=== PATIENT | male | born 1945 | race Caucasian/White ===

== ENCOUNTER 2016-08-06 06:51 | Emergency (ER) | payer MEDICARE, OTHER ==
[~2016-08-06] VITALS: Ht 172.7 cm; Wt 81.6 kg
[2016-08-06] MEDS ORDERED: predniSONE 20 MG TABLET ONE (07:15)
--- NOTE | 2016-08-06 07:21 | NUR ---
Karen simeon in [facility] - 08/06/16 at 0722 by ZULEYKA MILLY RT FOR BREATHING TX
--- NOTE | 2016-08-06 07:23 | NUR ---
PAGED GINA RT FOR BREATHING TX
[2016-08-06] MEDS ORDERED: ALBUTEROL FS 2.5 MG/3 ML VIAL.NEB ONE ×2 (07:27→08:13)
[2016-08-06] MEDS ORDERED: IPRATROPIUM NEB FS 0.5 MG/2.5 ML AMPUL.NEB ONE ×2 (07:27→08:13)
[2016-08-06] MEDS ORDERED: ALBUTEROL FS 2.5 MG/3 ML VIAL.NEB NEB ONE ×2 (07:30→08:30)
[2016-08-06] MEDS ORDERED: predniSONE 20 MG TABLET PO ONE (07:30)
[2016-08-06] MEDS ORDERED: IV NS 0.9% 1,000 ML BAG IV ONE (07:30)
[2016-08-06] MEDS ORDERED: IPRATROPIUM NEB FS 0.5 MG/2.5 ML AMPUL.NEB NEB ONE ×2 (07:30→08:30)
[2016-08-06 07:38] LABS: BASOPHILS % (AUTO) 0.3 % (0.0-2.0); EOSINOPHILS % (AUTO) 0.2 % (0.0-6.0); HEMATOCRIT 38 % (39-51); HEMOGLOBIN 13.1 g/dL (13.5-17.5); LYMPHOCYTES # (AUTO) 0.5 /CMM (0.8-4.8); LYMPHOCYTES % (AUTO) 8.3 % (20.0-44.0); MEAN CORPUSCULAR HEMOGLOBIN 31 PG (26.0-33.0); MEAN CORPUSCULAR HGB CONC 35 g/dl (31.0-36.0); MEAN CORPUSCULAR VOLUME 89 fL (80-96); MONOCYTES # (AUTO) 0.6 /CMM (0.1-1.30); MONOCYTES % (AUTO) 10.7 % (2.0-12.0); NEUTROPHILS # (AUTO) 4.7 /CMM (1.8-8.9); NEUTROPHILS % (AUTO) 80.5 % (43.0-81.0); PLATELET COUNT (AUTO) 196 /CMM (150-450); RDW COEFFICIENT OF VARIATION 13.6 (11.5-15.0); RED BLOOD CELL COUNT(AUTO) 4.24 MIL/uL (4.5-6.0); WHITE BLOOD COUNT (AUTO) 5.9 K/uL (4.3-11.0)
[2016-08-06 07:44] LABS: CALCIUM, SERUM 8.7 mg/dL (8.5-10.1); CREATININE 1.3 mg/dL (0.6-1.3); POTASSIUM 3.8 mmol/L (3.5-5.1)
[2016-08-06] MEDS ORDERED: IV NS 0.9% 1,000 ML ONE (07:50)
[2016-08-06] MEDS ORDERED: IV SET PRIMARY 1 EA INFUS.SET MC ONE (07:50)
--- NOTE | 2016-08-06 07:50 | NUR ---
XRAY IN PROGRESS AT BS
[2016-08-06 07:56] LABS: ALBUMIN 3.2 g/dL (3.4-5.0); BILIRUBIN,DIRECT 0.1 mg/dL (0.0-0.2); BILIRUBIN,TOTAL 0.6 mg/dL (0.2-1.0); TOTAL PROTEIN, SERUM 6.9 g/dL (6.4-8.2)
--- NOTE | 2016-08-06 08:19 | NUR ---
BREATHING TREATMENT #2 AT BS
[2016-08-06 09:15] VITALS: BP 125/71
--- NOTE | 2016-08-06 09:15 | NUR ---
IV removed. Catheter intact and site benign. Pressure and 4x4 applied to site. No bleeding noted.Patient discharged to home in stable condition. Written and verbal after care instructions given. Patient verbalizes understanding of instruction.
== END 2016-08-06 09:15 | disposition home or self-care (01) ==
LOC: ER 06:51
DX: J40 Bronchitis, not specified as acute or chronic (principal); J98.9 Respiratory disorder, unspecified; N40.0 Benign prostatic hyperplasia without lower urinary tract symptoms; F20.2 Catatonic schizophrenia; Z98.890 Other specified postprocedural states
CPT/HCPCS: 36415; 71010; 80048; 80076; 83880; 85025; 94640 ×2; 96360; 99285; A4606; J7030; J7512; Z7610

== ENCOUNTER 2019-05-31 01:27 | Inpatient (IN) | payer MEDICARE, OTHER ==
[~2019-05-31] VITALS: Ht 172.7 cm; Wt 96.2 kg
[2019-05-31] MEDS ORDERED: IV NS 0.9% 1,000 ML BAG IV ONE (02:00)
--- NOTE | 2019-05-31 02:15 | NUR ---
BIBSISTER FROM HOME TO ER BED 4. AAOX4. NO RESP DISTRESS NOTED. AMBULATORY. C/O RLQ ABDOMINAL PAIN STARTED AROUND 1700. PT RATES PAIN 8/10 SHARP AND ACHING. PT REPORTS +N/V, -D. PT'S SISTER ALSO REPORTS THAT HE HAD A FALL 1 WEEK AGO HIT HIS HEAD AND COT A CUT, NOTED A 4CM LONG STRIGHT DRY SCAB ON TOP OF THE HEAD. MD WAS AT BEDSIDE FOR EVAL . ORDERS RECEIVED NOTED AND MARINA OUT
[2019-05-31 02:19] LABS: BASOPHILS % (AUTO) 0.1 % (0.0-2.0); CALCIUM, SERUM 9.5 mg/dL (8.5-10.1); CREATININE 1.3 mg/dL (0.6-1.3); HEMATOCRIT 39 % (39-51); HEMOGLOBIN 13.4 g/dL (13.5-17.5); LYMPHOCYTES # (AUTO) 0.4 /CMM (0.8-4.8); LYMPHOCYTES % (AUTO) 1.8 % (20.0-44.0); MEAN CORPUSCULAR HGB CONC 34 g/dl (31.0-36.0); MEAN CORPUSCULAR VOLUME 90 fL (80-96); MONOCYTES # (AUTO) 1.3 /CMM (0.1-1.30); NEUTROPHILS # (AUTO) 19.5 /CMM (1.8-8.9); NEUTROPHILS % (AUTO) 92.1 % (43.0-81.0); PLATELET COUNT (AUTO) 240 /CMM (150-450); POTASSIUM 3.6 mmol/L (3.5-5.1); RED BLOOD CELL COUNT(AUTO) 4.39 MIL/uL (4.5-6.0); WHITE BLOOD COUNT (AUTO) 21.2 K/uL (4.3-11.0)
[2019-05-31 02:26] LABS: ALBUMIN 3.4 g/dL (3.4-5.0); BILIRUBIN,DIRECT 0.2 mg/dL (0.0-0.2); BILIRUBIN,TOTAL 1.4 mg/dL (0.2-1.0)
[2019-05-31] MEDS ORDERED: ONDANSETRON HCL/PF 4 MG/2 ML VIAL IVP ONE (02:30)
[2019-05-31] MEDS ORDERED: KETOROLAC TROMETHAMINE INJ 30 MG/ML VIAL IV ONE (02:30)
[2019-05-31] MEDS ORDERED: KETOROLAC TROMETHAMINE 15 MG/ML VIAL ONE (02:37)
[2019-05-31] MEDS ORDERED: ONDANSETRON HCL/PF 4 MG/2 ML VIAL ONE (02:38)
[2019-05-31] MEDS ORDERED: IOHEXOL-300 100 ML VIAL IV ONE (02:45)
--- NOTE | 2019-05-31 02:52 | NUR ---
TO CT ON [facility]
[2019-05-31] MEDS ORDERED: PIPERACILLIN /TAZOBACTAM 3.375 G in IV D5W 50 ML IV ONE (03:30)
[2019-05-31] MEDS ORDERED: PIPERACILLIN /TAZOBACTAM 3.375 G VIAL IV ONE (03:38)
--- NOTE | 2019-05-31 03:42 | NUR ---
DR. HEARD ON THE PHONE WITH DR. RABAGO (CLINICAL DATA ASSOCIATE SURGERY)
--- NOTE | 2019-05-31 03:42 | NUR ---
DR. HEARD ON THE PHONE WITH DR. CRUZ
--- NOTE | 2019-05-31 03:53 | NUR ---
ROOM ASSIGNMENT [id number]
--- NOTE | 2019-05-31 04:19 | NUR ---
REPORT GIVEN TO ESTIVEN GRANT FOR KATELYNN
[2019-05-31] MEDS ORDERED: ONDANSETRON HCL/PF 4 MG/2 ML VIAL IVP PRN (04:30)
[2019-05-31] MEDS ORDERED: MORPHINE SULFATE INJ 2 MG/ML DISP.SYRIN IV PRN (04:30)
[2019-05-31] MEDS ORDERED: ACETAMINOPHEN 650 MG/SUPP.RECT RC PRN (04:30)
[2019-05-31] MEDS ORDERED: IV D5/ 0.9% NACL 1,000 ML IV PRN (04:30)
[2019-05-31 04:55] VITALS: BP 119/87
--- NOTE | 2019-05-31 04:55 | NUR ---
PT TRANSPORTED TO UNIT ON [address] W/ EMT AND RN AT BEDSIDE. PT IS STABLE FOR TRANSPORT. NAD NOTED DURING TRANSPORT. PT AMBULATED FROM RNE TO BED W/ MIN ASSIST
[2019-05-31] MEDS ORDERED: PIPERACILLIN /TAZOBACTAM 3.375 G in IV D5W 50 ML IV SCH (05:00)
[2019-05-31] MEDS ORDERED: ANESTHESIA TRAY IN PYXIS 1 EA TRAY MC ONE (05:50)
[2019-05-31] MEDS ORDERED: BUPIVACAINE 0.25% 75 MG/30 ML VIAL ONE (05:50)
--- NOTE | 2019-05-31 05:50 | NUR ---
MS RN NOTES PATIENT PICKED UP BY OR STAFF VIA BED, ACCOMPANIED BY SISTER. PATIENT MEDICAL RECORDS BROUGHT WELL. PATIENT MEDICALLY STABLE.
--- NOTE | 2019-05-31 05:53 | NUR ---
MS PULVERIZER MILL OPERATOR NOTES PATIENT RECEIVED VIA GURNEY ACCOMPANIED BY ER STAFF AND SISTER. PATIENT A/O X 2-3, ABLE TO MAKE NEEDS KNOWN. RECEIVED MEDICAL HISTORY FROM SISTER. STABLE ON RA WITH BREATHING EVEN AND UNLABORED, NO SOB NOTED. IV LOCATED ON L AC #18 AND R AC #18 PATENT AND INTACT. ALL BELONGINGS ACCOUNTED FOR. VITALS TAKEN. ORIENTED TO ROOM AND STAFF. CONSENT WAS SIGNED BY SISTER- AWAITING SURGERY FOR APPENDECTOMY. WILL CONTINUE TO MONITOR.
[2019-05-31] MEDS ORDERED: PIPERACILLIN /TAZOBACTAM 3.375 G in IV D5W 100 ML IV SCH (06:00)
[2019-05-31] MEDS ORDERED: MIDAZOLAM HCL 2 MG/2ML VIAL ONE (06:00)
[2019-05-31] MEDS ORDERED: FENTANYL PF 250MCG/5ML AMPUL ONE (06:01)
[2019-05-31] MEDS ORDERED: ROCURONIUM BROMIDE 50 MG/5 ML ONE (06:01)
[2019-05-31] MEDS ORDERED: FAMOTIDINE/PF INJ 20 MG/2 ML VIAL IV ONE (06:01)
[2019-05-31] MEDS ORDERED: ATOR10TA PO (06:06)
[2019-05-31] MEDS ORDERED: OLAN20TA3 PO (06:09)
[2019-05-31] MEDS ORDERED: CLON2TAB11 PO (06:09)
[2019-05-31] MEDS ORDERED: MELO-107 PO (06:09)
--- NOTE | 2019-05-31 06:09 | NUR ---
MS RN NOTES MED RECON DONE, SISTER BROUGHT PATIENT MEDICATION- WROTE MEDICATIONS DOWN.
[2019-05-31] MEDS: PANTOPRAZOLE 40 MG VIAL IV SCH (09:13)
[2019-05-31] MEDS: PIPERACILLIN /TAZOBACTAM 3.375 G in IV D5W 100 ML IV SCH ×3 (09:13→23:01)
[2019-05-31 09:17] VITALS: BP 104/60
--- NOTE | 2019-05-31 09:50 | NUR ---
MS RN NOTES RECEIVED PATIENT FROM OR IN MEDICALLY STABLE CONDITION. PATIENT ON O2 THERAPY SATURATING WELL AT 100 PERCENT. BREATHING IN EVEN AND UNLABORED. NO SIGNS OF SOB AT THIS TIME. VITAL SIGNS WNL. DELFINO DRAIN PRESENT WITH 1ST EMPTYING OF 60 CC. DRESSING CLEAN AND INTACT. IV LINE PRESENT ON R HAND GAUGE # 20. INTACT AND INFUSING WELL. SAFETY PRECAUTIONS IN PLACE; BED IN LOW POSITION AND LOCKED, RAILS UP X 2, CALL LIGHT WITHIN REACH. WILL CONTINUE TO MONITOR PATIENT.
[2019-05-31] MEDS: clonazePAM 1 MG TABLET PO SCH ×2 (12:51→17:07)
[2019-05-31] MEDS: IV D5/0.45 NACL W/20 MEQ KCL 1L IV PRN ×2 (12:54)
[2019-05-31 16:03] VITALS: BP 112/64
[2019-05-31] MEDS: OLANZAPINE 10 MG TABLET PO SCH (17:38)
--- NOTE | 2019-05-31 18:57 | NUR ---
MS RN CLOSING NOTES PATIENT IN BED, WATCHING TV, A/O X2. PATIENT ON ROOM AIR BREATHING EVENLY WITH NO SIGNS OF DISTRESS AT THIS TIME. BREATHING IN EVEN AND UNLABORED. VITAL SIGNS WNL. DELFINO DRAIN PRESENT AND DRAINING WELL. DRESSING CLEAN AND INTACT. IV LINE PRESENT ON LAC GAUGE # 18. INTACT AND INFUSING WELL. ALL NEEDS ATTENDED TOO. SAFETY PRECAUTIONS IN PLACE; BED IN LOW POSITION AND LOCKED, RAILS UP X 2, CALL LIGHT WITHIN REACH. WILL ENDORSE TO TRUCK ASSEMBLER NURSE.
--- NOTE | 2019-05-31 19:49 | NUR ---
MS RN NOTES RECEIVED PATIENT RESTING IN BED, A/O X 2. PATIENT ON RA, STABLE. BREATHING EVEN AND UNLABORED. NO SIGNS OF SOB AT THIS TIME. DELFINO DRAIN PRESENT AND INTACT, DRAINING. DRESSING CLEAN AND INTACT. IV LINE L AC#18 INTACT AND INFUSING WELL. SAFETY PRECAUTIONS IN PLACE; BED IN LOW POSITION AND LOCKED, RAILS UP X 2, CALL LIGHT WITHIN REACH. WILL CONTINUE TO MONITOR PATIENT.
[2019-05-31 20:00] VITALS: BP_SYST 108; BP_SYST 127; BP_DIAS 59; BP_DIAS 64
[2019-06-01] MEDS: IV D5/0.45 NACL W/20 MEQ KCL 1L IV PRN ×4 (06:06→21:07)
--- NOTE | 2019-06-01 06:30 | NUR ---
MS RN NOTES DELFINO DRAIN DRAINED WITH 30 CC OF SERANGEOUS FLUIDS RED- NO BLOOD CLOTS NOTED.
--- NOTE | 2019-06-01 06:50 | NUR ---
MS RN CLOSING NOTES PATIENT IN BED, A/O X2-3. PATIENT ON ROOM AIR BREATHING EVENLY WITH NO SIGNS OF DISTRESS AT THIS TIME. BREATHING IN EVEN AND UNLABORED. NO COMPLAINTS OF PAIN OR DISCOMFORT. NO ACUTE DISTRESS NOTED. DELFINO DRAIN PRESENT AND DRAINING WELL. DRESSING CLEAN AND INTACT. IV LINE PRESENT ON LAC GAUGE # 18. INTACT AND INFUSING WELL. ALL NEEDS ATTENDED TOO. PATIENT WAS KEPT CLEAN AND DRY SAFETY PRECAUTIONS IN PLACE; BED IN LOW POSITION AND LOCKED, RAILS UP X 2, CALL LIGHT WITHIN REACH. WILL ENDORSE TO ONCOMING SHIFT NURSE ABOUT KATELYNN.
[2019-06-01 07:08] LABS: BASOPHILS % (AUTO) 0.4 % (0.0-2.0); EOSINOPHILS % (AUTO) 0.5 % (0.0-6.0); HEMATOCRIT 37 % (39-51); HEMOGLOBIN 12.7 g/dL (13.5-17.5); LYMPHOCYTES # (AUTO) 1.3 /CMM (0.8-4.8); LYMPHOCYTES % (AUTO) 11.3 % (20.0-44.0); MEAN CORPUSCULAR HGB CONC 34 g/dl (31.0-36.0); MEAN CORPUSCULAR VOLUME 92 fL (80-96); MONOCYTES % (AUTO) 8.1 % (2.0-12.0); NEUTROPHILS # (AUTO) 9.3 /CMM (1.8-8.9); NEUTROPHILS % (AUTO) 79.7 % (43.0-81.0); PLATELET COUNT (AUTO) 197 /CMM (150-450); RED BLOOD CELL COUNT(AUTO) 4.06 MIL/uL (4.5-6.0); WHITE BLOOD COUNT (AUTO) 11.7 K/uL (4.3-11.0)
[2019-06-01 07:18] LABS: CALCIUM, SERUM 8.8 mg/dL (8.5-10.1); CREATININE 1.1 mg/dL (0.6-1.3)
[2019-06-01 08:00] VITALS: BP 119/50
--- NOTE | 2019-06-01 08:00 | NUR ---
m/s stencil cutter: initial assessment received pt in bed awake, a/ox2-3 with disorientation to situation. pt has hx: dementia. dx: s/p lap appendectomy with placement of drain. no c/o pain or any discomfort. pt tolerating his diet. denies n/v. instructed to call for assistance. will continue to monitor.
[2019-06-01] MEDS: PIPERACILLIN /TAZOBACTAM 3.375 G in IV D5W 100 ML IV SCH ×2 (08:12→15:33)
[2019-06-01] MEDS: PANTOPRAZOLE 40 MG VIAL IV SCH (08:13)
[2019-06-01] MEDS: clonazePAM 1 MG TABLET PO SCH ×3 (08:24→17:01)
--- NOTE | 2019-06-01 09:45 | NUR ---
m/s coal unloader: notes cousin here visiting at this time.
--- NOTE | 2019-06-01 09:54 | NUR ---
m/s machine stemmer: surgeon f/u seen and examined by dr. campos at this time, likely for discharge tomorrow as stated. pt aware. also received verbal order for norco 5/325mg 1 tab po q 4 hours prn. order read back and carried out.
[2019-06-01] MEDS ORDERED: HYDROCODONE/APAP 5/325MG 1 EACH TABLET PO PRN (10:00)
--- NOTE | 2019-06-01 12:00 | NUR ---
m/s loan servicing specialist: notes lunch served. hob elevated. instructed to call for assistance. will continue to monitor.
--- NOTE | 2019-06-01 14:00 | NUR ---
m/s psychology department chair: notes resting comfortable in bed. no c/o pain. encourage to use incentive spirometry every hour x 10 while aware. instructed to call for assistance.
[2019-06-01 16:00] VITALS: BP 140/83
--- NOTE | 2019-06-01 17:10 | NUR ---
m/s canceling and cutting control clerk: notes sister came back for a visit and while i was giving his evening med, sister informed me that pt is getting seroquel 100mg po every night. i inform her that i will place a call to dr. manzanares to let him know. dr. manzanares notified and made aware with order to continue seroquel 100mg po every hs. order read back and carried out. pt and sister made aware.
[2019-06-01] MEDS ORDERED: QUET100T PO (17:13)
[2019-06-01] MEDS: OLANZAPINE 10 MG TABLET PO SCH (18:02)
--- NOTE | 2019-06-01 18:30 | NUR ---
m/s oil well engineer: notes sister left at this time. pt resting comfortable. no distress noted. needs attended. instructed to call for assistance. will continue to monitor.
--- NOTE | 2019-06-01 19:15 | NUR ---
m/s manager global communications: notes bedside report given to jean (kenzie) for continuity of care.
[2019-06-01 19:30] VITALS: BP 145/87
--- NOTE | 2019-06-01 19:30 | NUR ---
MS RN NOTES PATIENT IN BED, AWAKE, ALERT AND ORIENTED X 2-3. REMINDED PATIENT TO NOT GET OUT OF BED AND TO CALL FOR ASSISTANCE. BREATHING EVEN AND UNLABORED ON ROOM AIR. SHOWS NO SIGNS OF ACUTE RESPIRATORY DISTRESS, NO ACUTE PAIN. IV ON L WRIST 22G RUNNING D5 1/2 WITH 20MEQ KCL. CLEAN DRY AND INTACT. SHOWS NO SIGNS OF INFILTRATION, NO REDNESS. DELFINO INTACT AND DRAINING. SAFETY PRECAUTION IN PLACE. BED IN LOWEST POSITION, LOCKED, AND CALL LIGHT KEPT WITHIN REACH. WILL CONTINUE TO MONITOR.
[2019-06-01 20:40] VITALS: BP 145/87
[2019-06-01] MEDS: QUETIAPINE FUMARATE 100 MG TABLET PO SCH ×3 (21:05→21:48)
--- NOTE | 2019-06-01 22:00 | NUR ---
MS RN NOTES PATIENT REFUSED 2200 SEROQUEL AFTER OPENING MEDICATION. MEDICATION WASTED.
[2019-06-02] MEDS: PIPERACILLIN /TAZOBACTAM 3.375 G in IV D5W 100 ML IV SCH ×2 (00:03→08:22)
--- NOTE | 2019-06-02 06:41 | NUR ---
MS RN NOTES PATIENT IN BED, WITH INTERMITTENT SLEEP, ALERT AND ORIENTED X 2-3. BREATHING EVEN AND UNLABORED ON ROOM AIR. SHOWS NO SIGNS OF ACUTE RESPIRATORY DISTRESS, NO ACUTE PAIN. IV ON L WRIST 22G RUNNING D5 1/2 WITH 20MEQ KCL AT 75ML/HR. CLEAN DRY AND INTACT. SHOWS NO SIGNS OF INFILTRATION, NO REDNESS. DELFINO INTACT AND DRAINING SEROSANGUINEOUS. ATTENDED NEEDS THROUGHOUT SHIFT. ALL DUE MEDICATIONS GIVEN. SAFETY PRECAUTION IN PLACE. BED IN LOWEST POSITION, LOCKED, AND CALL LIGHT KEPT WITHIN REACH. WILL ENDORSE TO ONCOMING NURSE.
[2019-06-02 07:12] LABS: BASOPHILS % (AUTO) 0.5 % (0.0-2.0); EOSINOPHILS % (AUTO) 2.2 % (0.0-6.0); HEMATOCRIT 35 % (39-51); HEMOGLOBIN 12.2 g/dL (13.5-17.5); LYMPHOCYTES # (AUTO) 1.2 /CMM (0.8-4.8); LYMPHOCYTES % (AUTO) 13.4 % (20.0-44.0); MEAN CORPUSCULAR HGB CONC 35 g/dl (31.0-36.0); MEAN CORPUSCULAR VOLUME 91 fL (80-96); MONOCYTES # (AUTO) 0.7 /CMM (0.1-1.30); NEUTROPHILS % (AUTO) 75.9 % (43.0-81.0); PLATELET COUNT (AUTO) 217 /CMM (150-450); WHITE BLOOD COUNT (AUTO) 9.3 K/uL (4.3-11.0)
[2019-06-02 08:00] VITALS: BP 136/98
--- NOTE | 2019-06-02 08:00 | NUR ---
MS/RN Opening Note Received patient AO x 2-3, able to respond all stimuli. Respiratory even and unlabored, no sob or difficulty breath observed. Denies pain, skin is warm to touch, clean/dry, intact IV site, still remain DELFINO tube with serosanguineous exudate. Keep lower portion of bed with elevated HOB. Call light within reach, will continue to monitor.
[2019-06-02] MEDS: PANTOPRAZOLE 40 MG VIAL IV SCH (08:22)
[2019-06-02] MEDS: clonazePAM 1 MG TABLET PO SCH ×2 (08:22→12:48)
[2019-06-02 16:00] VITALS: BP 149/80
--- NOTE | 2019-06-02 16:00 | NUR ---
Given discharge instruction include picker/puller Rx, follow up Dr. Wilkins in 1 week for remove staple, and medication info with side effects, patient and Sister/Genia verbally understanding. Denies pain or any discomfort. Respiratory even and unlabored, skin is warm to touch, clean/dry, removed DELFINO tube by Dr. Wilkins, covered dry dressing, no active bleeding observed, picture taken.
--- NOTE | 2019-06-02 16:26 | NUR ---
Pt provided with dr. Wilkins's office information for f/u appointment.
== END 2019-06-02 16:10 | disposition home or self-care (01) | DRG 341 ==
LOC: ER 01:29 → MED 03:54
PROVIDERS: ADMIT Internal Medicine; ATTEND Internal Medicine
PROC: 0DTJ4ZZ Resection of Appendix, Percutaneous Endoscopic Approach (ICD-10-PCS; principal; 2019-05-31)
DX: K35.30 Acute appendicitis with localized peritonitis, without perforation or gangrene (principal); A41.9 Sepsis, unspecified organism; N40.0 Benign prostatic hyperplasia without lower urinary tract symptoms; F32.9 Major depressive disorder, single episode, unspecified; F41.9 Anxiety disorder, unspecified; F03.90 Unspecified dementia, unspecified severity, without behavioral disturbance, psychotic disturbance, mood disturbance, and anxiety; E78.5 Hyperlipidemia, unspecified; E66.9 Obesity, unspecified; Z68.32 Body mass index [BMI] 32.0-32.9, adult; Z91.81 History of falling
CPT/HCPCS: 36415; 70450-TC; 71045-TC; 80048-TC; 80076-TC; 83690-TC; 84484-TC; 85025-TC; 85610-TC; 87070-TC; 87081-TC; 88304-TC; C9113; G0378; J1885; J2250; J2405; J2543; J3010; J3480; J3490; J7030; J7042; J7060; Q9967

== ENCOUNTER 2022-11-13 10:03 | Emergency (ER) | payer MEDICARE, OTHER ==
[~2022-11-13] VITALS: Ht 170.2 cm; Wt 73.5 kg
[~2022-11-13 10:03] MED LIST: ATOR10TA PO; CLON2TAB11 PO; IBUP-1955 PO; MELO-107 PO; OLAN20TA3 PO; QUET100T PO
[2022-11-13] MEDS ORDERED: IV NS 0.9% 1,000 ML IV ONE ×2 (11:00→13:00)
[2022-11-13] MEDS ORDERED: IV NS 0.9% 1,000 ML BAG IV ONE (11:00)
[2022-11-13 11:08] LABS: HEMATOCRIT 34 % (39-51); HEMOGLOBIN 11.7 g/dL (13.5-17.5); LYMPHOCYTES # (AUTO) 0.4 K/uL (0.8-4.8); LYMPHOCYTES % (AUTO) 1.4 % (20.0-44.0); MEAN CORPUSCULAR HGB CONC 35 g/dl (31.0-36.0); MEAN CORPUSCULAR VOLUME 91 fL (80-96); MONOCYTES # (AUTO) 2.3 K/uL (0.1-1.30); MONOCYTES % (AUTO) 7.2 % (2.0-12.0); NEUTROPHILS # (AUTO) 29.1 K/uL (1.8-8.9); NEUTROPHILS % (AUTO) 91.4 % (43.0-81.0); PLATELET COUNT (AUTO) 310 K/uL (150-450); RED BLOOD CELL COUNT(AUTO) 3.71 MIL/uL (4.5-6.0)
[2022-11-13 11:12] LABS: CALCIUM, SERUM 9.6 mg/dL (8.5-10.1); CARBON DIOXIDE 21 mmol/L (21-32); CHLORIDE 103 mmol/L (98-107); CREATININE 1.7 mg/dL (0.6-1.3); GLUCOSE 160 mg/dL (74-106); POTASSIUM 4.6 mmol/L (3.5-5.1); SODIUM SERUM 138 mmol/L (136-145); UREA NITROGEN, BLOOD 15 mg/dL (7-18)
[2022-11-13 11:18] LABS: ALANINE AMINOTRANSFERASE 170 U/L (12-78); ALBUMIN 3.2 g/dL (3.4-5.0); ALKALINE PHOSPHATASE 143 U/L (46-116); ASPARTATE AMINOTRANSFERASE 174 U/L (15-37); BILIRUBIN,DIRECT 0.3 mg/dL (0.0-0.2); BILIRUBIN,TOTAL 1.2 mg/dL (0.2-1.0); TOTAL PROTEIN, SERUM 6.8 g/dL (6.4-8.2)
[2022-11-13 11:24] LABS: WHITE BLOOD COUNT (AUTO) 31.9 K/uL (4.3-11.0)
[2022-11-13] MEDS ORDERED: VANCOMYCIN 1 GM in IV D5W 250 ML IV ONE (11:30)
[2022-11-13] MEDS ORDERED: PIPERACILLIN /TAZOBACTAM 3.375 G in IV D5W 50 ML IV ONE (11:30)
[2022-11-13 12:06] LABS: MAGNESIUM 2.8 mg/dL (1.8-2.4)
[2022-11-13] MEDS ORDERED: OLAN5TAB3 PO (13:34)
[2022-11-13] MEDS ORDERED: ASPI-1169 PO (13:34)
[2022-11-13 13:50] LABS: BASOPHILS % (MANUAL) 0 % (0.0-2.0); EOSINOPHILS % (MANUAL) 0 % (0-4); LYMPHOCYTES % (MANUAL) 4 % (16-48); MONOCYTES % (MANUAL) 9 % (0-11.0); NEUTROPHILS % (MANUAL) 87 (42-76)
[2022-11-13] MEDS ORDERED: HEPARIN INFUSION/D5W 500 ML IV ONE (14:00)
[2022-11-13] MEDS ORDERED: HEPARIN SODIUM, PORCINE 5000 UNITS/1 ML VIAL IV ONE (14:00)
[2022-11-13] MEDS ORDERED: ATORVASTATIN 40 MG TABLET PO ONE (14:00)
[2022-11-13] MEDS ORDERED: ASPIRIN 325 MG TABLET PO ONE (14:00)
[2022-11-13] MEDS ORDERED: ATORVASTATIN 40 MG TABLET ONE (14:45)
[2022-11-13] MEDS ORDERED: ASPIRIN 325 MG TABLET ONE (14:46)
[2022-11-13] MEDS ORDERED: ONDANSETRON HCL/PF 4 MG/2 ML VIAL ONE (14:50)
[2022-11-13] MEDS ORDERED: ONDANSETRON HCL/PF 4 MG/2 ML VIAL IV ONE (15:00)
[2022-11-13 17:11] LABS: BASOPHILS # (AUTO) 0.1 K/uL (0.0-0.2); BASOPHILS % (AUTO) 0.7 % (0.0-2.0); HEMATOCRIT 32 % (39-51); HEMOGLOBIN 10.5 g/dL (13.5-17.5); LYMPHOCYTES # (AUTO) 0.7 K/uL (0.8-4.8); LYMPHOCYTES % (AUTO) 3.6 % (20.0-44.0); MEAN CORPUSCULAR HGB CONC 33 g/dl (31.0-36.0); MEAN CORPUSCULAR VOLUME 93 fL (80-96); MONOCYTES # (AUTO) 0.7 K/uL (0.1-1.30); MONOCYTES % (AUTO) 3.6 % (2.0-12.0); NEUTROPHILS # (AUTO) 18.8 K/uL (1.8-8.9); NEUTROPHILS % (AUTO) 92.1 % (43.0-81.0); PLATELET COUNT (AUTO) 239 K/uL (150-450); RED BLOOD CELL COUNT(AUTO) 3.37 MIL/uL (4.5-6.0); WHITE BLOOD COUNT (AUTO) 20.4 K/uL (4.3-11.0)
[2022-11-13 17:28] LABS: CALCIUM, SERUM 8.2 mg/dL (8.5-10.1); CARBON DIOXIDE 20 mmol/L (21-32); CHLORIDE 107 mmol/L (98-107); CREATININE 1.7 mg/dL (0.6-1.3); GLUCOSE 131 mg/dL (74-106); POTASSIUM 4.7 mmol/L (3.5-5.1); SODIUM SERUM 138 mmol/L (136-145); UREA NITROGEN, BLOOD 20 mg/dL (7-18)
[2022-11-13] MEDS ORDERED: PANTOPRAZOLE 40 MG VIAL IV ONE (17:30)
[2022-11-13] MEDS ORDERED: FAMOTIDINE/PF INJ 40 MG in IV D5W 50 ML IV ONE (17:30)
[2022-11-13] MEDS ORDERED: PANTOPRAZOLE 40 MG VIAL ONE (17:50)
[2022-11-13 18:43] LABS: LYMPHOCYTES % (MANUAL) 4 % (16-48); MONOCYTES % (MANUAL) 2 % (0-11.0); NEUTROPHILS % (MANUAL) 94 (42-76)
[2022-11-13 20:03] VITALS: BP 111/58; TEMP 98.3; O2SAT 95
== END 2022-11-13 20:27 | disposition hospice, inpatient (51) ==
LOC: ER 10:48
DX: S42.211A Unspecified displaced fracture of surgical neck of right humerus, initial encounter for closed fracture (principal); S01.01XA Laceration without foreign body of scalp, initial encounter; I21.4 Non-ST elevation (NSTEMI) myocardial infarction; R55 Syncope and collapse; I95.9 Hypotension, unspecified; D72.829 Elevated white blood cell count, unspecified; K92.2 Gastrointestinal hemorrhage, unspecified; R11.2 Nausea with vomiting, unspecified; F03.90 Unspecified dementia, unspecified severity, without behavioral disturbance, psychotic disturbance, mood disturbance, and anxiety; W18.30XA Fall on same level, unspecified, initial encounter; Y93.89 Activity, other specified; Y92.89 Other specified places as the place of occurrence of the external cause; Y99.8 Other external cause status
CPT/HCPCS: 99291; 93307; 72125; 96365; 96367; 96375; 71045; 96366; 96361; 96368; 93005 ×3; 73080; 73060; 70450; 72131; 72128; 74176; 85025 ×2; 80048 ×2; 87040 ×2; 80076; 83735; 36415; 84484 ×3; 85730; 86850; 83880; 85007 ×2; J1644 ×2; J3490; J3370; J2405; J2543; J7060 ×2; J7030; C9113